=== PATIENT | female | born 1990 | race Caucasian/White ===

== ENCOUNTER 2022-08-14 21:53 | Emergency (ER) | payer OTHER ==
[~2022-08-14] VITALS: Ht 154.9 cm; Wt 72.6 kg
[~2022-08-14 21:53] MED LIST: INTE30KI6 MR
[2022-08-14 22:19] VITALS: BP 96/67
--- NOTE | 2022-08-14 22:22 | NUR ---
Patient ambuted to bed 09.
--- NOTE | 2022-08-14 22:45 | NUR ---
ASSUME CARE OF PT, PT C/O RLQ ABD PAIN X 1 DAY WITH N AND VOMITING, PT PLACED IN GOWN AND ON THE MONITOR, STATES 7/10 THROBBING PAIN, NO OTHER COMPLAINTS AT PRESENT TIME. DR AVENDAÑO NOTIFIED AND AWARE.
--- NOTE | 2022-08-14 22:49 | NUR ---
Dr. Fernando examining patient.
[2022-08-14] MEDS ORDERED: ONDANSETRON 4 MG/2 ML VIAL ONE (22:54)
[2022-08-14] MEDS ORDERED: NACL 0.9% 1,000 ML IV ONE (22:55)
[2022-08-14] MEDS ORDERED: ONDANSETRON 4 MG/2 ML VIAL IVP ONE (22:55)
[2022-08-14] MEDS ORDERED: MORPHINE SULFATE 4 MG/ML SYR IVP ONE (22:55)
[2022-08-14] MEDS ORDERED: MORPHINE SULFATE 4 MG/ML SYR ONE (22:55)
[2022-08-14 23:08] LABS: APPEARANCE,URINE HAZY (CLEAR); BILIRUBIN,URINE NEGATIVE (NEGATIVE); BLOOD, URINE 2+ (NEGATIVE); COLOR,URINE YELLOW (YELLOW); LEUKOCYTE ESTERASE ,URINE TRACE (NEGATIVE); NITRITE, URINE NEGATIVE (NEGATIVE); UGLUCOSE NEGATIVE (NEGATIVE)
[2022-08-14 23:17] LABS: BASOPHILS % (AUTO) 0.2 % (0.0-2.0); EOSINOPHILS % (AUTO) 0.3 % (0.0-4.0); HEMOGLOBIN 13.5 g/dL (12.0-16.0); LYMPHOCYTES # (AUTO) 0.6 K/uL (2.5-16.5); LYMPHOCYTES % (AUTO) 5.8 % (20.5-51.1); MEAN CORPUSCULAR HEMOGLOBIN 34 pg (27-31); MEAN CORPUSCULAR HGB CONC 35 g/dL (33-37); MEAN CORPUSCULAR VOLUME 97.5 fL (80-94); MONOCYTES # (AUTO) 0.9 K/uL (0.8-1.0); MONOCYTES % (AUTO) 7.8 % (1.7-9.3); NEUTROPHILS # (AUTO) 9.5 K/uL (1.8-7.7); NEUTROPHILS % (AUTO) 85.9 % (42.2-75.2); PLATELET COUNT (AUTO) 215 K/uL (140-450); RED CELL DISTRIBUTION WIDTH 12.5 % (11.6-13.7)
[2022-08-14 23:23] LABS: RBC,URINE 11-20 (MOD) /HPF (0-5)
[2022-08-14 23:31] LABS: ALBUMIN 3.3 g/dL (3.4-5.0); ANION GAP 13.1 (8-16); CARBON DIOXIDE 22.9 mmol/L (21-32); CREATININE 0.9 mg/dL (0.6-1.3); TOTAL BILIRUBIN 0.5 mg/dL (0.0-1.0)
[2022-08-15] MEDS ORDERED: MORPHINE SULFATE 4 MG/ML SYR IVP ONE (00:25)
[2022-08-15] MEDS ORDERED: cefTRIAXone 1,000 MG VIAL ONE (00:34)
--- NOTE | 2022-08-15 00:40 | NUR ---
BLOOD CULTURES DRAW AND GIVEN TO PHELBOTOMIST.
--- NOTE | 2022-08-15 00:40 | NUR ---
PT STATES PAIN HAS RETURNED, DR AVNEDAÑO NOTIFIED AND NEW ORDERS WILL BE PLACED.
--- NOTE | 2022-08-15 00:57 | NUR ---
PT RESTING IN BED, VSS.
[2022-08-15] MEDS ORDERED: NAPR-54 PO (02:02)
[2022-08-15] MEDS ORDERED: CIPR500T4 PO (02:02)
[2022-08-15 02:10] VITALS: BP 110/64
--- NOTE | 2022-08-15 02:11 | NUR ---
DR AVENDAÑO AT BEDSIDE INSTRUCTING PT WITH DISCHARGE INSTRUCTIONS.
--- NOTE | 2022-08-15 02:13 | NUR ---
Patient discharged with v/s stable. Written and verbal after care instructions given and explained. Patient alert, oriented and verbalized understanding of instructions. Ambulatory with steady gait. All questions addressed prior to discharge. ID band removed. Patient advised to follow up with PMD. Rx of CIPRO AND NAPROXEN given. Patient educated on indication of medication including possible reaction and side effects. Opportunity to ask questions provided and answered.
== END 2022-08-15 02:13 | disposition home or self-care (01) ==
LOC: MED 21:53
DX: N20.0 Calculus of kidney (principal)
CPT/HCPCS: 36415; 74176; 80053; 81001; 81025; 85025; 87040; 87086; 96361; 96365; 96375; 96376; 99285; J0696; J2270; J2405; J7030